=== PATIENT | male | born 1965 | race Caucasian/White ===

== ENCOUNTER 2018-11-19 20:47 | Inpatient (IN) | payer OTHER ==
[~2018-11-19] VITALS: Ht 152.4 cm; Wt 83.0 kg
--- NOTE | ~2018-11-19 | CON ---
[address] [address] CONSULTATION Name: VIOLETTATRAVON ELVA Room: [address] IN M.R.#: [id number] Admission: 11/19/18 Attend Phys: Josefa Cook Discharge: Date of : 67 Report #: [id number] THIS REPORT FOR: //name// CC: JULIO physician/PCP Yonas Ramos DATE OF SERVICE: 11/21/2018 REASON FOR CONSULT: Weight loss of 45 pounds. HISTORY OF PRESENT ILLNESS: This is a 53-year-old male who has been reporting weakness for the past couple of weeks. Since his weakness was severe and he had some history of weight loss of 45 pounds over the last 3 months, this prompted him to come to hospital. The patient found to have mono and also influenza B antigen was positive. The patient has posttraumatic stress disorder and received his care at the [facility]. He admits that he never has had any endoscopic evaluation. The patient also denies any hematochezia, melena, change in stool habits and caliber, abdominal pain, nausea or vomiting. He reports his appetite has been good and he has never had any significant GI problems. During this hospitalization, the patient had chest x-ray and blood work. The blood work revealed mild anemia with hemoglobin of 12.8. PAST MEDICAL HISTORY: Significant for history of depression and posttraumatic stress disorder, herniated disk surgery. ALLERGIES: SIGNIFICANT TO CODEINE AND PRAZOSIN. MEDICATIONS: Please refer to MAR. SOCIAL HISTORY: The patient denies tobacco or alcohol use. He has PTSD and served in [employer]. The patient is , receive his care at [facility]. His primary care physician is Dr. Vela at [facility]. FAMILY HISTORY: Negative for GI malignancy. PHYSICAL EXAMINATION: VITAL SIGNS: Reveals blood pressure of 143/77, respiration 18, pulse 71, temperature 98.3. LUNGS: Clear. CARDIOVASCULAR: Regular. ABDOMEN: Soft, nontender, nondistended. Bowel sounds are positive. There [place] [address] CONSULTATION Name: TRAVON SHIPLEY Room: [address] IN ..#: [id number] Admission: 11/19/18 Attend Phys: Josefa Cook Discharge: Date of : 67 Report #: [id number] LABORATORY DATA: Reveal sodium of 142, potassium 3.4, BUN is 16, creatinine 1.0, glucose is 85, lipase 127. Liver function tests are all within normal limits. TSH is mildly elevated to 5.16. WBC is 8.7 with hemoglobin of 12.8, and platelet of 220. Both mono test and influenza B antigen are positive. IMAGING: Chest x-ray was obtained, which did not show any abnormalities. ASSESSMENT AND PLAN: The patient with history of weight loss of 45 pounds in the last 3 months, which he believes is secondary to his PTSD and being under stress. He also is borderline anemic and never had a colonoscopy. Given the patient's weight loss and anemia, we will consider upper and lower endoscopy. I will wait until his influenza B and mono is dealt with. Meanwhile, if there was any suspicion, imaging studies if they have not been done in the last 3 months may be a consideration. The patient is agreeable with plan. By: [id number] Francisco Collado MD /nt
[~2018-11-19 20:47] MED LIST: EPIPEN 2-P0.3 MG/0.3 IM; LIORESAL 10 MG10 MG; PREDNISONE50 MG PO; SEROQUEL 50 MG50 MG; XANAX 0.5 MG0.5 MG PO
[2018-11-19 20:53] VITALS: BP 145/60
[2018-11-19 21:20] LABS: ABSOLUTE BASOPHILS 0.1 thou/uL (0.0-0.2); ABSOLUTE EOSINOPHILS 0.1 thou/uL (0.0-0.7); ABSOLUTE LYMPHOCYTES 3.4 thou/uL (0.8-5.3); ABSOLUTE MONOCYTES 0.8 thou/uL (0.0-1.2); ABSOLUTE NEUTROPHILS 4.3 thou/uL (1.6-8.1); BASOPHILS 0.7 %; EOSINOPHILS 0.9 %; HEMATOCRIT 36.5 % (42.0-52.0); HEMOGLOBIN 12.8 gm/dL (14.0-18.0); LYMPHOCYTES 39.1 %; MCH 30.9 pg (26.0-34.0); MCHC 35.1 g/dL (28.0-37.0); MONOCYTES 9.5 %; MPV 8.7 fl. (7.2-11.1); NUCLEATED RBCS 0 /100WBC; PLATELET COUNT* 220 thou/uL (150-400); POLYS 49.8 %; RBC 4.15 mil/uL (4.50-6.00); RDW-CV 13.9 % (10.5-14.5); WBC 8.7 thou/uL (4.0-11.0)
[2018-11-19 21:24] LABS: INR 1.2; PROTIME 11.9 Seconds (9.20-11.50)
[2018-11-19 21:25] LABS: ANION GAP 12 mmol/L (7-16); BUN 16 mg/dL (7-18); CALCIUM 8.7 mg/dL (8.5-10.1); CHLORIDE 109 mmol/L (98-107); CO2 21 mmol/L (21-32); GLUCOSE 85 mg/dL (70-99); POTASSIUM 3.4 mmol/L (3.5-5.1); SODIUM 142 mmol/L (136-145)
[2018-11-19 21:36] LABS: ALBUMIN 3.4 g/dL (3.4-5.0); ALKALINE PHOSPHATASE 57 U/L (46-116); LIPASE 127 U/L (73-393); NT-PRO BRAIN NAT PEPTIDE 80 pg/mL (<300); SGOT 15 U/L (15-37); SGPT 28 U/L (30-65); TOTAL BILIRUBIN 0.5 mg/dL (<0.1-1.0); TOTAL PROTEIN 6.7 g/dL (6.4-8.2); TROPONIN-I LEVEL <0.06 ng/mL (<0.06)
[2018-11-19 23:30] VITALS: BP 113/65
[2018-11-19] MEDS ORDERED: ZOLOFT25 MG PO (23:45)
[2018-11-20] VITALS (7 sets, daily range): BP systolic 127–145; BP diastolic 67–93
[2018-11-20] MEDS ORDERED: SEROQUEL 25 MG25 M1 PO (10:50)
[2018-11-20] MEDS ORDERED: SEROQUEL 50 MG50 MG PO (10:52)
[2018-11-20] MEDS ORDERED: MELATONIN3 MG PO (10:53)
[2018-11-20] MEDS ORDERED: ONDANSETRON HCL4 M2 PO (10:55)
--- NOTE | 2018-11-20 13:41 | EKG ---
[place] [address] ELECTROCARDIOGRAM REPORT Name: TRAVON SHIPLEY Room: [address] ADM IN M.R.#: [id number] Admission: 11/19/18 Attend Phys: Josefa Cook Discharge: Date of : 67 Report #: [id number] THIS REPORT FOR: //name// [facility] ED Test Date: 2018-11-19 Test Time: 20:57:26 Pat Name: TRAVON SHIPLEY Department: Room: [facility] Gender: M Voice Writing Reporter: : 1965 Requested By: Jacque Butler Order Number: [id number] MD: Devendra Nicolas Measurements Intervals [place] Rate: 49 P: 63 DE: 184 QRS: 99 QRSD: 104 T: 42 QT: 455 QTc: 411 Interpretive Statements Sinus bradycardia Borderline right axis deviation Baseline wander in lead(s) III,aVF,V2,V5,V6 No previous ECG available for comparison Electronically Signed On 11-20-2018 13:41:27 CDT by Devendra Nicolas [email or web address] <ELECTRONICALLY SIGNED> By: Devendra Nicolas MD, [facility] 11/20/18 1341 56 56 Devendra Nicolas MD, [facility] /EPI
[2018-11-21 04:00] VITALS: BP 143/77
[2018-11-21 05:25] LABS: URINE BILIRUBIN NEGATIVE (Negative); URINE BLOOD NEGATIVE (Negative); URINE CLARITY CLEAR; URINE COLOR YELLOW; URINE GLUCOSE-RANDOM NEGATIVE (Negative); URINE KETONES NEGATIVE (Negative); URINE LEUKOCYTES-REFLEX NEGATIVE (Negative); URINE NITRITE-REFLEX NEGATIVE (Negative); URINE PROTEIN NEGATIVE (Negative); URINE UROBILINOGEN 0.2 E.U./dl (0.2-1.0)
[2018-11-21 06:03] LABS: INFLUENZA A ANTIGEN None Detected (None Detect)
[2018-11-21 08:00] VITALS: BP 139/84
[2018-11-21 11:38] VITALS: BP 127/71
[2018-11-21 15:57] VITALS: BP 106/59
[2018-11-21 20:00] VITALS: BP 120/72
[2018-11-22] VITALS: BP 110/69
[2018-11-22 04:00] VITALS: BP 119/73
[2018-11-22 08:00] VITALS: BP 103/65
[2018-11-22] MEDS ORDERED: TAMIFLU75 MG PO (12:25)
[2018-11-22 12:29] VITALS: BP 103/65
[2018-11-22 12:37] VITALS: BP 110/76
--- NOTE | 2018-11-22 14:38 | CON ---
[address] [address] CONSULTATION Name: TRAVON SHIPLEY Room: [address] IN M.R.#: [id number] Admission: 11/19/18 Attend Phys: Josefa Cook Discharge: 11/22/18 Date of : 67 Report #: [id number] THIS REPORT FOR: //name// CC: JULIO physician/PCP Yonas Ramos DATE OF SERVICE: 11/20/2018 TYPE OF REPORT: Cardiology consultation. HISTORY OF PRESENT ILLNESS: The patient is a 53-year-old white male who I was asked to see in the hospital today after he is noted to be bradycardic. The patient has no previous history of heart disease. He has had no previous cardiac evaluation. He stays very active, working on his home. He notes he was doing well until the past couple of weeks, he has felt fatigued. He has had fever, chills, some shortness of breath and nausea. He came to the Emergency Room and was diagnosed with mononucleosis. He was noted to be bradycardic and Cardiology consultation was requested. He denies any history of lightheadedness before, fatigue or syncope. He has never been told he had a slow heart rate. He has had no previous cardiac evaluation. Denies history of exertional chest pain or edema. PAST MEDICAL HISTORY: He has had a previous hernia repair and nose fracture. No history of hypertension, diabetes or hyperlipidemia. He has a history of post-traumatic stress disorder and is followed by a psychiatrist at the [facility]. He was a snap in the . MEDICATIONS AT HOME: Include Xanax, melatonin, Zofran, Seroquel and Zoloft. ALLERGIES: He has a previous intolerance to CODEINE. FAMILY HISTORY: Negative for heart disease. SOCIAL HISTORY: He is on disability. He and his live in [place]. No smoking, alcohol abuse or illicit drug use. REVIEW OF SYSTEMS: He has had no history of stroke, asthma, peptic ulcer disease, liver disease, kidney disease or cancer or chronic skin condition. PHYSICAL EXAMINATION: GENERAL: Revealed a middle-aged male, lying in bed, appeared in no distress. VITAL SIGNS: He had a blood pressure of 130/70, pulse is 60 and he is afebrile. HEENT: He is anicteric. Conjunctivae pink. Mucous membranes appear moist. NECK: Veins not distended. No carotid bruits. CHEST: Clear to auscultation. CARDIOVASCULAR: [place] [address] CONSULTATION Name: TRAVON SHIPLEY Room: [address]#: [id number] Admission: 11/19/18 Attend Phys: Josefa Cook Discharge: 11/22/18 Date of : 67 Report #: [id number] ABDOMEN: Soft. EXTREMITIES: Had no edema. Posterior tibial pulse 2+ bilaterally. SKIN: Warm and dry. NEUROLOGICAL: Nonfocal. LYMPHATIC: No adenopathy. MUSCULOSKELETAL: No joint effusion. RADIOLOGICAL DATA: His ECG showed a sinus bradycardia with no significant ST or T-wave change. His workup since his admission, he had a portable chest x-ray that showed normal heart size and clear lung evans. LABORATORY DATA: Sodium 142 and potassium 3.4. Liver function studies were normal. Troponin 0.06. BNP 80, TSH is 5.1. White blood cell count 8.7 and hemoglobin 12.8. Adams test was positive. IMPRESSION AND RECOMMENDATIONS: 1. Sinus bradycardia, asymptomatic. I would avoid drugs such as beta-shayy that slow the heart rate. Recommend no further cardiac evaluation. 2. Mononucleosis. 3. Elevated TSH. If persistent, I would consider thyroid replacement. 4. History of posttraumatic stress disorder. <ELECTRONICALLY SIGNED> By: Devendra Nicolas MD, [facility] 11/22/18 1438 [id number] Nicolas MD, FACC /nt
[2018-11-27 12:08] LABS: FREE TESTOSTERONE 2.8 pg/mL (7.2-24.0)
== END 2018-11-22 13:15 | disposition home or self-care (01) | DRG 866 ==
LOC: M.ERS 20:47 → M.TBA-ER 22:19 → M.2W 22:19
PROVIDERS: Emergency Medicine; ADMIT Internal Medicine
DX: J10.89 Influenza due to other identified influenza virus with other manifestations (principal); B27.90 Infectious mononucleosis, unspecified without complication; B34.9 Viral infection, unspecified; R00.1 Bradycardia, unspecified; E86.0 Dehydration; F43.10 Post-traumatic stress disorder, unspecified; R63.4 Abnormal weight loss; D64.9 Anemia, unspecified; Z68.35 Body mass index [BMI] 35.0-35.9, adult; Z88.5 Allergy status to narcotic agent; Z88.8 Allergy status to other drugs, medicaments and biological substances; Z79.899 Other long term (current) drug therapy